=== PATIENT | female | born 1955 ===

== ENCOUNTER 2016-12-10 07:25 | Emergency (ER) | payer SELFPAY ==
[2016-12-10] MEDS ORDERED: IOPAMIDOL 300 (61%) 150 ML VIAL IV ONE (07:26)
[2016-12-10 08:24] LABS: ABSOLUTE NEUTROPHIL COUNT 2.6 K/mm3 (1.8-7.7); BASO % 0.2 % (0.2-1.0); EOS % 0.2 % (0.9-2.9); HEMATOCRIT 34.7 % (37.0-47.0); HEMOGLOBIN 11.7 gm/l (12.0-16.0); IMM NEUT% 0.2 % (0-1); LYMPH # 1.4 (1.0-4.8); LYMPH % 31.2 % (15-45); MEAN CELL VOLUME 92.8 fl (81.0-99.0); MEAN CORPUSCULAR HEMOGLOBIN 31.3 pg (27.0-31.0); MEAN CORPUSCULAR HGB CONC 33.7 g/dl (33.0-37.0); MEAN PLATELET VOLUME 10.1 fl (7.4-10.4); MONO # 0.4 (0.0-0.8); MONO % 9.5 % (4-12); NEUT % 58.7 % (43-75); PLATELET COUNT 203 K/mm3 (130-400); RED CELL DISTRIBUTION WIDTH 13.2 % (11.5-14.5)
[2016-12-10] MEDS ORDERED: MORPHINE SULFATE 4 MG/ML SYRINGE ONE (08:40)
[2016-12-10] MEDS ORDERED: LACTATED RINGERS 1,000 ML ONE (08:40)
[2016-12-10] MEDS ORDERED: ACETAMINOPHEN 325 MG TABLET ONE (08:40)
[2016-12-10 08:56] LABS: SPECIFIC GRAVITY 1.005 (1.001-1.030); URINE APPEARANCE CLEAR; URINE BILIRUBIN NEGATIVE (NEGATIVE); URINE BLOOD 1+ (NEGATIVE); URINE COLOR YELLOW; URINE GLUCOSE (UA) NEGATIVE (NEGATIVE); URINE LEUKOCYTE ESTERASE NEGATIVE (NEGATIVE); URINE NITRITE NEGATIVE (NEGATIVE); URINE PROTEIN NEGATIVE (NEGATIVE); URINE UROBILINOGEN NORMAL (0-1 mg/dl)
[2016-12-10 09:02] LABS: INR 1.05
[2016-12-10 09:08] LABS: ALB/GLOB RATIO 1.2 (>1.0); ALBUMIN 3.8 gm/dL (3.5-5.7); CALCIUM 8.8 mg/dL (8.6-10.3)
[2016-12-10 09:12] LABS: URINE BACTERIA RARE; URINE EPITHELIAL CELLS RARE /hpf; URINE WBC NEG /hpf
[2016-12-10 09:13] LABS: TROPONIN I < 0.01 ng/ml (0.0-0.06)
[2016-12-10 09:17] LABS: CKMB ISOENZYME 0.8 ng/ml (0.6-6.3)
--- NOTE | 2016-12-10 10:15 | CT ---
EXAMINATION: Contrast enhanced CT scan of the abdomen and pelvis. CLINICAL INDICATION: Left-sided abdominal pain. Nausea. COMPARISON: None TECHNIQUE: Oral contrast: None Following uneventful administration of 125 mL of Isovue 300, intravenously axial images were acquired from just above the domes of the diaphragm to the iliac crest. A CT scan of the pelvis was also obtained from the iliac crest to the initial tuberosities. Stacked axial, sagittal, and coronal images were reviewed. Findings: Abdomen CT: (Contrast-enhanced): There is right middle lobe bronchiectasis and peribronchial thickening. Remainder the lung bases are clear and are without mass or pleural effusion. The liver is unremarkable. The gallbladder is within normal limits. There is no evidence of biliary obstruction. The spleen size and attenuation are within normal limits. The pancreas is normal in size and contours. No inflammatory stranding is identified. The pancreatic duct is unremarkable. The adrenals are unremarkable. Kidneys exhibit extrarenal pelvis bilaterally. No distal ureteral dilatation is identified. No plaquing calculi are seen. After chronic plaquing of abdominal aorta is noted. There is no aneurysmal dilatation. There is no adjacent lymphadenopathy. The stomach is unremarkable. The visualized segments of small and large bowel are within normal limits. The osseous structures exhibit no displaced fracture. No lytic or blastic lesions are identified. Pelvic CT: (Contrast -enhanced): The distal ureters and bladder are unremarkable. Uterus is retroverted. There are no adnexal masses. No adenopathy is identified. The distal abdominal aorta and iliac vessels are within normal limits. The visualized segments of small and large bowel are unremarkable. The appendix is unremarkable. No displaced fractures are identified. There are no gross osteolytic or blastic lesions. The overlying soft tissues are unremarkable. IMPRESSION: 1. Right middle lobe bronchiectasis with peripheral scarring. Findings may reflect sequela of prior atypical pneumonia. 2. No acute inflammatory or obstructive process is identified within the abdomen and pelvis. 3. Bilateral extrarenal pelvis with no evidence of jimmy hydronephrosis or perinephric stranding. No ureteral calculi are identified. 4. Retroverted uterus. 5. Normal appendix. 6. Mild atherosclerotic changes of the abdominal aorta. The findings were uploaded to the electronic medical record for review at approximately 10:16 AM 12/10/2016
--- NOTE | 2016-12-10 10:17 | RAD ---
EXAMINATION:CHEST - 2 VIEWS CLINICAL INDICATION: Fever and weakness. COMPARISON: Prior exam dated 01/12/2007. FINDINGS: The cardiomediastinal silhouette is within normal limits. There is no adenopathy identified. There is no pleural effusion. Minimal coarsened opacities are noted within the right lower lung zone/middle lobe. No dense consolidation is identified. The osseous structures are unremarkable for age. IMPRESSION: Right middle lobe probable scarring/possible bronchiectasis. No consolidation or effusion is identified.
[2016-12-10] MEDS ORDERED: DOXYCYCLINE HYCLATE 100 MG TABLET ONE (10:47)
[2016-12-10] MEDS ORDERED: CEFTRIAXONE 1 GRAM DUPLEX 50 ML IV ONE (10:47)
== END 2016-12-10 11:53 | disposition home or self-care (01) ==
LOC: ED 07:25 → SUPCPDRO 07:25 → ED 11:53
DX: J18.9 Pneumonia, unspecified organism (principal)
CPT/HCPCS: 83605; 83690; 85025; 82553; 80053; 83735; 85610; 84484; 81001; 71020; 74177; 87804; 96375; 99284 ×2; 96374; 96361 ×2; 93005; J2270; A9270 ×2; J7120; Q9967; J0696

== ENCOUNTER 2016-12-24 09:19 | Day surgery (SDC) | payer SELFPAY ==
[~2016-12-24 09:19] MED LIST: FENTANYL 250 MCG/5 ML AMP IV PRN; IV START KIT ONE; LACTATED RINGERS 1,000 ML IV SCH; LACTATED RINGERS 1,000 ML ONE; LIDOCAINE Viscous 2% 15 ML UDCUP PO PRN; MIDAZOLAM HCL 5 MG/5 ML VIAL IV PRN
[2016-12-24] MEDS ORDERED: MIDAZOLAM HCL 5 MG/5 ML VIAL ONE (11:02)
[2016-12-24] MEDS ORDERED: FENTANYL 5 ML ONE (11:02)
[2016-12-24] MEDS ORDERED: LIDOCAINE Viscous 2% 15 ML UDCUP ONE (11:03)
--- NOTE | 2016-12-27 15:07 | SURGPATH ---
[facility] [address] [place] [id number] Patient Name: DON NEW MR#: [id number] : 1955 Gender: F Specimen #: [id number] Collected: 12/24/2016 Received: 12/25/2016 Reported: 12/27/2016 Submitting Phys: IKER ANN Copy To Phys: [facility] JAMESON PARKERELLE Warner Clinical History / Pre-Operative Diagnosis: Left abdominal pain with nausea; weight loss; rule out Giardia, celiac sprue, gastritis, ileitis and colitis Specimen Source / Surgical Procedure Performed: #1-duodenal biopsy; #2-antral biopsy; #3-terminal ileum biopsy; #4-cecal biopsy; #5-sigmoid biopsy at 30 cm Interpretation: 1. DUODENAL BIOPSY: - NO SIGNIFICANT PATHOLOGIC ABNORMALITIES IDENTIFIED. 2. ANTRAL BIOPSY: - CHRONIC ANTRAL GASTRITIS WITH INTESTINAL METAPLASIA. - NO HELICOBACTER ORGANISMS IDENTIFIED BY IMMUNOHISTOCHEMISTRY. 3. TERMINAL ILEUM BIOPSY: - NO SIGNIFICANT PATHOLOGIC ABNORMALITIES IDENTIFIED. 4. CECAL BIOPSY: - NO SIGNIFICANT PATHOLOGIC ABNORMALITIES IDENTIFIED. 5. SIGMOID BIOPSY AT 30 CM: - NO SIGNIFICANT PATHOLOGIC ABNORMALITIES IDENTIFIED. Electronically Signed Out Sanjuana Jimenez M.D. Gross Description: #1 The specimen is received in a formalin filled container labeled with the patient's name and "duodenal biopsy". A single lozoya biopsy is 0.5 cm. Totally embedded in cassette #1. #2 The specimen is received in a formalin filled container labeled with the patient's name and "antral biopsy". Two camacho-lozoya biopsies are each 0.3 cm. Totally embedded in cassette #2. #3 The specimen is received in a formalin filled container labeled with the patient's name and "terminal ileum biopsy". A single lozoya biopsy is 0.2 cm. Totally embedded in cassette #3. #4 The specimen is received in a formalin filled container labeled with the patient's name and "cecal biopsy". Two lozoya biopsies are 0.3 and 0.4 cm. Totally embedded in cassette #4. #5 The specimen is received in a formalin filled container labeled with the patient's name and "sigmoid biopsy at 30 cm". A single lozoya biopsy is 0.5 cm. Totally embedded in cassette #5. Clarence An Microscopic Description: 1. Sections of the duodenal biopsy show benign duodenal mucosa with no significant pathologic changes. 2. Sections of the antral biopsy show increased chronic inflammation of the lamina propria with clustering of plasma cells. In addition, there are areas of intestinal metaplasia. The mucosa is not obviously atrophic. No convincing Helicobacter organisms are seen on the routinely stained sections. Immunohistochemical staining for Helicobacter is negative. The control material stains appropriately. 3. Sections of the terminal ileum biopsy show benign small bowel mucosa with no significant pathologic changes. 4.-5. Sections of the cecal and sigmoid colon biopsies show benign colonic mucosa with no significant pathologic changes. (Analyte-specific reagents (ASR) are used in many laboratory tests necessary for standard medical care and generally do not require FDA approval. This test was developed and its performance characteristics determined by [facility]. It has not been cleared or approved by the U.S. Food and Drug Administration. [facility] is certified under the Clinical Laboratory Improvement Amendments of 1988 as qualified to perform high complexity clinical laboratory testing. All controls stain as expected.) 1: 99924 2: 91437, 28544 3: 79592 4: 33513 5: 01872 K29.50 R10.9
== END 2016-12-24 13:31 | disposition home or self-care (01) ==
LOC: SDC 09:19
PROVIDERS: ATTEND Internal Medicine Gastroenterology
PROC: 0DBH8ZX Excision of Cecum, Via Natural or Artificial Opening Endoscopic, Diagnostic (ICD-10-PCS; principal; 2016-12-24)
PROC: 0DBB8ZX Excision of Ileum, Via Natural or Artificial Opening Endoscopic, Diagnostic (ICD-10-PCS; 2016-12-24)
PROC: 0DBN8ZX Excision of Sigmoid Colon, Via Natural or Artificial Opening Endoscopic, Diagnostic (ICD-10-PCS; 2016-12-24)
PROC: 0DB98ZX Excision of Duodenum, Via Natural or Artificial Opening Endoscopic, Diagnostic (ICD-10-PCS; 2016-12-24)
PROC: 0DB68ZX Excision of Stomach, Via Natural or Artificial Opening Endoscopic, Diagnostic (ICD-10-PCS; 2016-12-24)
DX: K59.8 Other specified functional intestinal disorders (principal); K29.50 Unspecified chronic gastritis without bleeding; K29.80 Duodenitis without bleeding; R63.4 Abnormal weight loss; Z68.22 Body mass index [BMI] 22.0-22.9, adult
CPT/HCPCS: 45380; 43239; J3010; J2250; A9270; J7120

== ENCOUNTER 2017-01-09 00:04 | Observation (INO) | payer SELFPAY ==
[2017-01-09] MEDS ORDERED: IOPAMIDOL 300 (61%) 100 ML VIAL IV ONE (00:05)
[2017-01-09] MEDS ORDERED: ONDANSETRON 4 MG/2ML 2 ML VIAL ONE (00:50)
[2017-01-09] MEDS ORDERED: PANTOPRAZOLE SODIUM 40 MG VIAL IV ONE (00:50)
[2017-01-09] MEDS ORDERED: HYDROMORPHONE HCL 1 MG/ML SYRINGE ONE (00:50)
[2017-01-09] MEDS ORDERED: LACTATED RINGERS 1,000 ML ONE ×2 (00:50→01:31)
[2017-01-09 01:02] LABS: ABSOLUTE NEUTROPHIL COUNT 8.8 K/mm3 (1.8-7.7); BASO % 0.2 % (0.2-1.0); HEMATOCRIT 36.8 % (37.0-47.0); HEMOGLOBIN 11.9 gm/l (12.0-16.0); IMM NEUT% 0.4 % (0-1); LYMPH # 1.1 (1.0-4.8); LYMPH % 10.6 % (15-45); MEAN CELL VOLUME 93.6 fl (81.0-99.0); MEAN CORPUSCULAR HEMOGLOBIN 30.3 pg (27.0-31.0); MEAN CORPUSCULAR HGB CONC 32.3 g/dl (33.0-37.0); MEAN PLATELET VOLUME 9.2 fl (7.4-10.4); MONO # 0.2 (0.0-0.8); MONO % 1.6 % (4-12); NEUT % 87.2 % (43-75); PLATELET COUNT 303 K/mm3 (130-400); RED CELL DISTRIBUTION WIDTH 13.2 % (11.5-14.5)
[2017-01-09 01:22] LABS: ALB/GLOB RATIO 1.3 (>1.0); ALBUMIN 4.3 gm/dL (3.5-5.7); CALCIUM 10.1 mg/dL (8.6-10.3)
[2017-01-09 02:04] LABS: SPECIFIC GRAVITY 1.015 (1.001-1.030); URINE BILIRUBIN NEGATIVE (NEGATIVE); URINE BLOOD NEGATIVE (NEGATIVE); URINE GLUCOSE (UA) NEGATIVE (NEGATIVE); URINE LEUKOCYTE ESTERASE NEGATIVE (NEGATIVE); URINE NITRITE NEGATIVE (NEGATIVE); URINE PROTEIN NEGATIVE (NEGATIVE); URINE UROBILINOGEN NORMAL (0-1 mg/dl)
[2017-01-09 02:05] LABS: URINE APPEARANCE CLEAR; URINE COLOR YELLOW
[2017-01-09 03:18] VITALS: BMI 19.3
[2017-01-09] MEDS ORDERED: MENTHOL/CETYLPYRD 1 EACH LOZENGE PO PRN (04:45)
[2017-01-09] MEDS ORDERED: BLISTEX LIPSTICK 1 EACH TP PRN (04:45)
[2017-01-09] MEDS ORDERED: SODIUM CHLORIDE 0.9% 100 ML IV PRN (04:45)
[2017-01-09] MEDS ORDERED: ONDANSETRON 4 MG/2ML 2 ML VIAL IV PRN (04:48)
[2017-01-09] MEDS ORDERED: HYDROMORPHONE HCL 1 MG/ML SYRINGE IV PRN (05:12)
[2017-01-09] MEDS ORDERED: PUMP TUBING ONE (05:59)
[2017-01-09] MEDS: D5 1/2NS with 20 mEq KCL 1,000 ML IV SCH ×3 (06:01→23:40)
[2017-01-09 07:15] LABS: ABSOLUTE NEUTROPHIL COUNT 6.4 K/mm3 (1.8-7.7); BASO % 0.2 % (0.2-1.0); HEMATOCRIT 31.8 % (37.0-47.0); HEMOGLOBIN 10.4 gm/l (12.0-16.0); IMM NEUT% 0.3 % (0-1); LYMPH # 1.8 (1.0-4.8); LYMPH % 21.1 % (15-45); MEAN CELL VOLUME 93.3 fl (81.0-99.0); MEAN CORPUSCULAR HEMOGLOBIN 30.5 pg (27.0-31.0); MEAN CORPUSCULAR HGB CONC 32.7 g/dl (33.0-37.0); MONO # 0.4 (0.0-0.8); MONO % 4.1 % (4-12); NEUT % 74.3 % (43-75); PLATELET COUNT 255 K/mm3 (130-400); RED CELL DISTRIBUTION WIDTH 13.5 % (11.5-14.5)
--- NOTE | 2017-01-09 07:42 | CT ---
Exam Type: ABD/PELVIS W/ CON Date and Time: 01/09/2017 12:33 AM Clinical information: Abdomen pain with vomiting. Comparison: 12/10/2016. Procedure: Imaging device: RxVantage Aquilion [address] scanner 1 mm axial images were obtained through the abdomen and pelvis. Stacked reconstructed 3, 4 and 5 mm images were photographed in the axial coronal and sagittal planes. No oral contrast was utilized for this examination. 100 ml of Isovue-300 was injected intravenously. Exam: with intravenous contrast. FINDINGS: Lung bases: Scarring and mild bronchiectasis is suggested within the inferior aspects of the right middle lobe and lingula. Liver: the liver is homogeneous with no discrete abnormality visualized. No definite findings of biliary dilatation are observed. Spleen: The spleen is homogeneous and does not appear to be enlarged. Gallbladder: Normal without enlargement or evidence of adjacent inflammatory changes. Pancreas: Normal without enlargement or evidence of adjacent inflammatory changes. Adrenal glands: Normal without enlargement or evidence of adjacent inflammatory changes. Abdominal aorta: Atherosclerotic vascular calcification is seen. There is no focal aneurysm identified. Kidneys: The kidneys appear to be symmetric in size with no perinephric inflammatory changes are identified. No current findings of hydronephrosis are seen. Bowel structures: The colon is completely decompressed with a mild to moderate quantity of stool seen throughout the colon. There are fluid-filled mildly prominent loops of small bowel seen throughout the abdomen which are more conspicuous than the appearance on prior examination. There may be a relative transition within the central pelvis. No free air is visualized. A small amount of pelvic free fluid is observed. Appendix: The appendix is well-visualized and appears to be of normal caliber. No periappendiceal inflammatory changes or CT findings of appendicitis are currently observed. Bladder: The bladder is of normal contour. No wall thickening or significant distention is observed. Hernia: No abdominal wall or inguinal hernia is visualized on this examination. Adenopathy: No significant enlarged adenopathy is visualized. Osseous structures: No discrete osseous abnormalities are identified. Pelvic structures: No discrete pelvic abnormalities are visualized in this examination. IMPRESSION: 1. Fluid-filled mildly dilated small bowel loops throughout the abdomen with a relative transition within the central/anterior pelvis. Findings are more conspicuous than their appearance on prior examination and may reflect early or partial small bowel obstruction versus a diffuse ileus, though the colon appears to be completely decompressed. 2. A small amount of pelvic free fluid. 3. A normal appearance of the appendix without CT evidence of appendicitis. The findings were called to the emergency room at 0206 hours, 01/09/2017, by [facility].
[2017-01-09] MEDS ORDERED: ACETAMINOPHEN 325 MG TABLET PO PRN (08:28)
--- NOTE | 2017-01-09 08:37 | PCMCONS ---
General Surgery Consult: CC: Abdominal pain HPI: 61yo F with abdominal pain and poor PO intake. These symptoms started 4 months ago and she has had multiple evaluations in the interim. She states her main complaint is LEFT sided abdominal pain. Yesterday, she also had two episodes of NV. Her last BM was yesterday and she states she felt better afterwards. She is currently passing flatus. Her outpatient workup has included now two abdominal CT scans, a RUQ/abdominal US, and a colonoscopy/EGD which only elucidated gastritis. She was started on famotidine and carafate with no real relief. Her daughter states that she has lost weight recently, but is unsure as to how much. According to outpatient records, her weight on the following dates was: 09/29/14: 147 lbs 11/14/15: 109 lbs 10/26/16: 109 lbs 12/09/16: 106 lbs 12/17/16: 106lbs The patient endorses subjective chillsmild intermittent epigastric/chest pain, constipation, and RIGHT shoulder pain. She denies any recent F/SOB, change in bladder fx, easy bleeding/bruising, or other associated symptoms. REVIEW OF SYSTEMS CONSTITUTIONAL: As per HPI. EARS, NOSE, MOUTH, THROAT: No sneezing or runny nose CARDIOVASCULAR: As per HPI. RESPIRATORY: As per HPI. GASTROINTESTINAL: As per HPI. GENITOURINARY: As per HPI. NEUROLOGICAL: No history of seizures HEMATOLOGIC: As per HPI. MUSCULOSKELETAL: No change in strength. LYMPHATICS: No history of splenectomy. PSYCHIATRIC: No change in personality or affect PMH: None PSH: None Meds: Carafate, famotidine All: NKDA SH: Denies FH: Father with leukemia Vitals (last 24 hours): Vital Signs - 24 hr 01/09/17 01/09/17 01/09/17 03:31 07:15 08:00 Temperature 97.9 F 98.5 F Pulse Rate 102 89 Respiratory 18 16 Rate Blood Pressure 155/79 146/75 O2 Saturation 97 97 by Pulse Oximetry Physical Exam: General/Constitutional: Vitals documented above, comfortable in NAD Psych: A&O x 3, normal judgment and insight. Recent and remote memory intact. Mood and affect normal. Eyes: Pupils equal, no scleral icterus Ears, Nose, Mouth, Throat: gross hearing intact Neck: Supple Heart: RRR, no LE edema Lungs: Equal rise and fall of chest wall, non-labored breathing, no audible wheezes Neuro: Gross sensation intact Abdomen: Soft, ND, mild LEFT abdominal TTP, no guarding Labs (Last 24 hours): Laboratory Results - last 24 hr 01/09/17 01/09/17 01/09/17 00:41 02:00 07:08 WBC 10.1 8.6 RBC 3.93 L 3.41 L Hgb 11.9 L 10.4 L Hct 36.8 L 31.8 L MCV 93.6 93.3 MCH 30.3 30.5 MCHC 32.3 L 32.7 L RDW 13.2 13.5 Plt Count 303 255 Neut % (Auto) 87.2 H 74.3 Lymph % (Auto) 10.6 L 21.1 Hayes % (Auto) 1.6 L 4.1 Baso % (Auto) 0.2 0.2 Absolute Neuts (auto) 8.8 H 6.4 Eosinophils % 0.0 L 0.0 L VBG Lactate 2.6 H 2.5 H Sodium 138 140 Potassium 3.8 3.6 Chloride 96 L 101 Carbon Dioxide 29 30 Anion Gap 17 H 13 BUN 10 6 L Creatinine 0.7 0.6 Estimated GFR 86 102 H BUN/Creatinine Ratio 14 10 Glucose 180 H 137 H Calcium 10.1 9.0 Total Bilirubin 0.3 AST 34 ALT 49 Alkaline Phosphatase 98 Total Protein 7.6 Albumin 4.3 Globulin 3.3 Albumin/Globulin Ratio 1.3 Lipase 8 L Urine Color Yellow Urine Appearance Clear Urine pH 8.0 Ur Specific [place] 1.015 Urine Protein Negative Urine Glucose (UA) Negative Urine Ketones Negative Urine Blood Negative Urine Nitrite Negative Urine Bilirubin Negative Urine Urobilinogen Normal Ur Leukocyte Esterase Negative % Immature Granulocyt 0.4 0.3 Radiology: CT A/P (01/09/17): FINDINGS: Lung bases: Scarring and mild bronchiectasis is suggested within the inferior aspects of the right middle lobe and lingula. Liver: the liver is homogeneous with no discrete abnormality visualized. No definite findings of biliary dilatation are observed. Spleen: The spleen is homogeneous and does not appear to be enlarged. Gallbladder: Normal without enlargement or evidence of adjacent inflammatory changes. Pancreas: Normal without enlargement or evidence of adjacent inflammatory changes. Adrenal glands: Normal without enlargement or evidence of adjacent inflammatory changes. Abdominal aorta: Atherosclerotic vascular calcification is seen. There is no focal aneurysm identified. Kidneys: The kidneys appear to be symmetric in size with no perinephric inflammatory changes are identified. No current findings of hydronephrosis are seen. Bowel structures: The colon is completely decompressed with a mild to moderate quantity of stool seen throughout the colon. There are fluid-filled mildly prominent loops of small bowel seen throughout the abdomen which are more conspicuous than the appearance on prior examination. There may be a relative transition within the central pelvis. No free air is visualized. A small amount of pelvic free fluid is observed. Appendix: The appendix is well-visualized and appears to be of normal caliber. No periappendiceal inflammatory changes or CT findings of appendicitis are currently observed. Bladder: The bladder is of normal contour. No wall thickening or significant distention is observed. Hernia: No abdominal wall or inguinal hernia is visualized on this examination. Adenopathy: No significant enlarged adenopathy is visualized. Osseous structures: No discrete osseous abnormalities are identified. Pelvic structures: No discrete pelvic abnormalities are visualized in this examination. IMPRESSION: 1. Fluid-filled mildly dilated small bowel loops throughout the abdomen with a relative transition within the central/anterior pelvis. Findings are more conspicuous than their appearance on prior examination and may reflect early or partial small bowel obstruction versus a diffuse ileus, though the colon appears to be completely decompressed. 2. A small amount of pelvic free fluid. 3. A normal appearance of the appendix without CT evidence of appendicitis. A/P: 61yo F with chronic LEFT abdominal pain, weight loss, and nausea/vomiting. Mild persistent tachycardia and lactic acidosis despite fluid resuscitation. Persistent mild anemia. CT scan shows possible obstructive pattern vs. ileus and she has no prior history of prior abdominal surgeries. Prior CT/US/EGD/ Colonoscopy largely unremarkable. Given her benign exam and that she is passing flatus, favor ileus over obstruction. Given the transition point in the pelvis and her LEFT sided abdominal pain, would further evaluate OIL DELIVERER organs with pelvic US. Will continue to follow with you. Feliz Self MD General Surgery
[2017-01-09] MEDS: FAMOTIDINE 20 MG TABLET PO SCH ×2 (09:16→20:32)
[2017-01-09] MEDS: PANTOPRAZOLE 40 MG TABLET DR PO SCH (09:16)
--- NOTE | 2017-01-09 09:21 | HP ---
Mile Null [id number] : 1955 DATE OF ADMISSION: 01/09/2017 INDENTIFICATION: Ms. Null is a 61-year-old followed at [facility]. CHIEF COMPLAINT: Abdominal pain. HISTORY OF PRESENT ILLNESS: History if obtained with the patient's daughter acting as branch store manager. The patient did [employer]. She reports burning left sided and epigastric abdominal pain since August. She has been seeking medical care at various clinics and hospitals including [facility] and [facility]. She has had a variety of workup, but came to [place] on December 10. She was seen in the emergency department and diagnosed with pneumonia. She was then referred, by Urgent Care apparently, to Dr. Esquivel and was seen on December 24 for EGD and colonoscopy. EGD showed some gastritis. Colonoscopy was normal, but impression of functional motility disorder was noted. The patient was treated with famotidine and sucralfate, but her symptoms have continued and worsened and she presented to [facility] Emergency Room last night due to abdominal pain. She had a CT scan which appeared to show partial small bowel obstruction and she was referred to the hospitalist service for observation. She did have a normal bowel movement at approximately 1400 yesterday and did note decrease in her abdominal pain with her bowel movement. She does note currently passing gas this morning. REVIEW OF SYSTEMS: HEENT: Reports headache, right posterior. No specific problems with ears, eyes, nose, or throat. RESPIRATORY: Slight cough with some bitter sputum. No dyspnea. CARDIAC: No chest pain or palpitations. GASTROINTESTINAL: She did have vomiting twice yesterday. Does not feel nauseated now. Normal bowel movement yesterday, passing gas now. GENITOURINARY: No dysuria or urgency. MUSCULOSKELETAL: Complains of right posterior shoulder pain which has been chronic. CONSTITUTIONAL: She has felt chilled. Her daughter thinks that she has lost weight from about 112 pounds last August when she started having pain to about 103 pounds now. PAST MEDICAL HISTORY: None other than the recent diagnosis of gastritis. PAST SURGICAL HISTORY: None. ALLERGIES: None known. MEDICATIONS: 1. Sucralfate 2 gm by mouth twice daily. 2. Famotidine 40 mg by mouth twice daily. HABITS: No tobacco, alcohol, or drugs. SOCIAL HISTORY: She is a homemaker. Lives in [place] with extended family. FAMILY HISTORY: Her father had leukemia. PHYSICAL EXAMINATION: GENERAL: This is an anxious, but well-appearing 61-year-old. pleasant elderly .. VITAL SIGNS: Temperature 98.5 degrees Fahrenheit, pulse 89, blood pressure 146/75, respiratory rate 16, oxygen saturation 97% on room air. HEENT: Pupils equal, round, and reactive. Extraocular muscles intact. Oropharynx is moist. CHEST: Clear to auscultation. HEART: Regular with a 2/6 systolic murmur. ABDOMEN: Soft with mild tenderness on the left flank. No guarding or rebound. Normal bowel sounds. No organomegaly. EXTREMITIES: Normal dorsalis pedis pulses. No cyanosis, clubbing, or edema. NEUROLOGIC: Patient is alert and oriented. She has no focal deficits. LABORATORIES: White blood cell count 10.1, hemoglobin and hematocrit 11.9 and 36.8, platelets 303. Lactate is 2.6, on repeat exam 6 hours later it is still 2.5. Chemistry, sodium 138, potassium 3.8, chloride 96, CO2 29, BUN 17, creatinine 0.7, glucose 180. Liver enzymes are normal. Lipase is 8. Urinalysis is normal. DIAGNOSTICS: CT scan of the abdomen and pelvis shows fluid filled small bowel loops throughout the abdomen with relative transition in the central anterior pelvis, there is pelvic free fluid noted, normal appendix. ASSESSEMENT: Ms. Null is a 61-year-old with several months history of abdominal pain who now presents with what appears to be a partial small bowel obstruction versus ileus with persistent lactic acidosis. She has gastritis and anemia. PLAN: 1. Refer to observation on med/surg. 2. Intravenous fluid hydration. 3. Surgical consultation. 4. We will check pelvic ultrasound for source of obstruction. 5. Since she is passing gas and abdominal exam is benign we will start clear liquids. 6. Full code status. 7. Anticipate hospitalization of less than 48 hours therefore, venous thromboembolism prophylaxis is not indicated. JOB: [id number]
--- NOTE | 2017-01-09 11:36 | US ---
Exam: Complete pelvic ultrasound COMPARISON: CT 01/09/2017 and 12/10/2016 INDICATION: Left lower quadrant pain and anemia. FINDINGS: Transabdominal and transvaginal pelvic ultrasound was obtained. Uterus measures 6.2 x 2.0 x 4.2 cm and is overall homogeneous in echotexture. Endometrium within normal limits measuring up to 4 mm in bilayer thickness on the transvaginal exam. Right ovary measures 1.9 x 2.5 x 0.9 cm and left ovary measures 2.0 x 0.8 x 1.5 cm. There is a 10 mm cyst within the left ovary. Ovaries otherwise unremarkable. There is a small amount of free fluid in the pelvis, simple in appearance. IMPRESSION: No findings identified to explain patient's symptoms. Endometrium and ovaries are within normal limits.
[2017-01-09] MEDS: KETOROLAC TROMETHAMINE 15 MG/ML VIAL IV PRN (20:28)
[2017-01-10] MEDS: HYDROMORPHONE HCL 0.5 MG/0.5 ML SYRINGE IV PRN ×2 (00:58→02:09)
[2017-01-10 05:59] LABS: ABSOLUTE NEUTROPHIL COUNT 2.2 K/mm3 (1.8-7.7); BASO % 0.7 % (0.2-1.0); EOS % 0.5 % (0.9-2.9); HEMATOCRIT 31.2 % (37.0-47.0); HEMOGLOBIN 10.1 gm/l (12.0-16.0); IMM NEUT% 0.2 % (0-1); LYMPH # 1.5 (1.0-4.8); LYMPH % 36.5 % (15-45); MEAN CELL VOLUME 94.5 fl (81.0-99.0); MEAN CORPUSCULAR HEMOGLOBIN 30.6 pg (27.0-31.0); MEAN CORPUSCULAR HGB CONC 32.4 g/dl (33.0-37.0); MEAN PLATELET VOLUME 9.2 fl (7.4-10.4); MONO # 0.3 (0.0-0.8); MONO % 8.2 % (4-12); NEUT % 53.9 % (43-75); PLATELET COUNT 226 K/mm3 (130-400); RED CELL DISTRIBUTION WIDTH 13.7 % (11.5-14.5)
[2017-01-10 06:19] LABS: ALB/GLOB RATIO 1.2 (>1.0); ALBUMIN 3.4 gm/dL (3.5-5.7); CALCIUM 8.7 mg/dL (8.6-10.3)
[2017-01-10] MEDS: D5 1/2NS with 20 mEq KCL 1,000 ML IV SCH ×2 (07:46→16:06)
[2017-01-10] MEDS: KETOROLAC TROMETHAMINE 15 MG/ML VIAL IV PRN ×2 (07:54→13:58)
--- NOTE | 2017-01-10 08:17 | RAD ---
ABDOMEN 2 VIEWS W PA CHEST HISTORY: Upper back pain and abdominal pain. COMPARISONS: CT abdomen and pelvis 01/09/2017 FINDINGS: PA of the chest with upright and supine views of the abdomen are obtained. Lungs are clear without effusion or pneumothorax. Cardiomediastinal silhouette is unremarkable. No plain film evidence of intraperitoneal free air. Bowel gas pattern is nonspecific and nonobstructive. The air-fluid levels seen on recent CT are not identified on this examination. Mild amount stool is scattered throughout the large bowel. Osseous structures are intact. IMPRESSION: Negative examination.
[2017-01-10] MEDS: PANTOPRAZOLE 40 MG TABLET DR PO SCH (08:42)
[2017-01-10] MEDS: FAMOTIDINE 20 MG TABLET PO SCH ×2 (08:42→20:36)
--- NOTE | 2017-01-10 08:46 | PDOC43 ---
- Subjective Subjective: Reports Flatus, Reports Pain Tolerable, Denies Bowel Movement, Denies Nausea - Objective Vital Signs Temperature 97.8 F 01/10/17 07:51 Pulse Rate 68 01/10/17 07:51 Respiratory Rate 18 01/10/17 07:51 Blood Pressure 150/69 01/10/17 07:51 O2 Saturation by Pulse Oximetry 99 01/10/17 07:51 Oxygen Delivery Method Room Air Oxygen Flow Rate 0 Laboratory 01/10/17 05:30 01/10/17 05:30 01/10/17 05:30 RBC 3.30 L MCHC 32.4 L BUN 3 L Estimated GFR 126 H Total Protein 6.3 L Albumin 3.4 L Active Medication Orders Category Date Time Status Acetaminophen [Tylenol] Med 01/09/17 08:28 Active 650 mg PO Q6H PRN D5 1/2NS with 20 mEq KCL [D51/2NS with 20 mEq KCL] 1, Med 01/09/17 04:45 Active 000 ml IV 125 mls/hr Famotidine [Pepcid] Med 01/09/17 09:00 Active 20 mg PO BID Hydromorphone HCl [Dilaudid] Med 01/09/17 04:48 Active 0.5 - 1 mg IV Q2H PRN Hydromorphone HCl [Dilaudid] Med 01/09/17 05:12 Active 0.5 - 1 mg IV Q2H PRN Ketorolac Tromethamine [Toradol] Med 01/09/17 20:00 Active 15 mg IV Q6H PRN Lip [place] [Blistex] Med 01/09/17 04:45 Active 1 each TP PRN PRN Menthol/Cetylpyridinium [Cepacol] Med 01/09/17 04:45 Active 1 each PO PRN PRN Ondansetron 4 mg/2ml Vial [Zofran] Med 01/09/17 04:48 Active 4 mg IV Q3H PRN Pantoprazole Sodium [Protonix] Med 01/09/17 09:00 Active 40 mg PO DAILY Sodium Chloride 0.9% 100 ml Med 01/09/17 04:45 Active IV PRN Sodium Chloride 0.9% Flush [Normal Saline 10ml Flush] Med 01/09/17 04:45 Active 10 - 50 ml IV PRN PRN Sodium Chloride 0.9% Flush [Normal Saline 10ml Flush] Med 01/09/17 17:00 Active 10 ml IV Q8HR Intake and Output 01/09/17 01/10/17 01/11/17 06:59 06:59 06:59 Intake Total 2257 Output Total 600 3950 Balance -600 -1693 General: Alert, Oriented x3 Abdomen: Soft, Tenderness (left upper quadrant), Non-Distended Psych/Mental Status: Normal Affect - Assessment/ Plan (1) SBO (small bowel obstruction) Status: AcuteAssessment/ Plan: x-rays this am are normal. Still having pain. Will order gastrograffin SBFT. May have therapeutic effect. I wonder if this is just constipation. Discussed with Dr. Gama. (2) Lactic acidosis Status: AcuteAssessment/ Plan: Resolved.
--- NOTE | 2017-01-10 13:17 | RAD ---
SMALL BOWEL FOLLOW THROUGH HISTORY: Ileus versus obstruction. COMPARISONS: CT abdomen and pelvis 01/09/2017. Acute abdominal series earlier on the same day. FINDINGS: Multiple radiographic images are obtained during small bowel follow-through after uneventful ingestion of dilute Gastrografin solution by the patient. By 90 minutes time Gastrografin has reached the large bowel. Small bowel appears normal in its mucosal pattern. Osseous structures are intact. IMPRESSION: Contrast reaches the large bowel by 90 minutes time. No evidence of complete obstruction. Partial obstruction is possible. Differential considerations would include ileus. Correlation with patient's clinical status would be recommended.
[2017-01-10] MEDS ORDERED: MAGNESIUM CITRATE 300 ML BOT PO ONE (16:43)
--- NOTE | 2017-01-10 17:16 | PDOC43 ---
- Subjective Chief Complaint: abdominal pain Passing small hard pellets of stool. Still c/o abd pain on left side. - Objective Vital Signs Temperature 97.7 F 01/10/17 13:38 Pulse Rate 75 01/10/17 13:38 Respiratory Rate 16 01/10/17 13:38 Blood Pressure 151/81 01/10/17 13:38 O2 Saturation by Pulse Oximetry 100 01/10/17 13:38 Oxygen Delivery Method Room Air Oxygen Flow Rate 0 Intake and Output 01/09/17 01/10/17 01/11/17 06:59 06:59 06:59 Intake Total 2257 360 Output Total 600 3950 Balance -600 -1693 360 General: Alert, Oriented x3, Cooperative, No Acute Distress HEENT: Mucous membr. moist/pink Lungs: Clear to Auscultation Bilaterally Cardiovascular: Regular Rate and Rhythm Abdomen: Soft, Tenderness (on left side), Hyperactive Bowel Sounds, No Masses Extremities: Normal Pulses, No Edema Skin: Normal Color Neurological: Normal Speech Psych/Mental Status: Anxious Laboratory 01/10/17 05:30 01/10/17 05:30 01/10/17 05:30 RBC 3.30 L MCHC 32.4 L BUN 3 L Estimated GFR 126 H Total Protein 6.3 L Albumin 3.4 L Current Medications: Current meds reviewed in EMR. - Problems: Assessment/Plan (1) Lactic acidosis Status: AcuteAssessment/Plan: Due to dehydration, resolved. (2) SBO (small bowel obstruction) Status: AcuteAssessment/Plan: Resolved per x-ray and SB f/t today. (3) Anemia Status: ChronicAssessment/Plan: chronic, slightly worse due to hydration. Defer to outpatient w/u (4) GERD (gastroesophageal reflux disease) Qualifiers: Esophagitis presence: esophagitis presence not specified Qualifier Code : (K21.9) Gastro-esophageal reflux disease without esophagitis Status: ChronicAssessment/Plan: continue PPI (5) IBS (irritable bowel syndrome) Qualifiers: Irritable bowel syndrome type: with constipation Qualifier Code: (K58.1 ) Irritable bowel syndrome with constipation Status: ChronicAssessment/Plan : Suspect symptoms are due to IBS with constipation, trial of dycyclomine and laxatives. VTE Prophylaxis: not indicated Disposition: home tonight or tomorrow.
[2017-01-10] MEDS: DICYCLOMINE HCL 10 MG CAPSULE PO SCH (20:36)
[2017-01-10] MEDS: SUCRALFATE 1 G TABLET PO SCH (20:37)
[2017-01-11 06:26] LABS: HEMATOCRIT 32.5 % (37.0-47.0); HEMOGLOBIN 10.3 gm/l (12.0-16.0)
[2017-01-11 06:47] LABS: CALCIUM 9.2 mg/dL (8.6-10.3)
[2017-01-11] MEDS: DICYCLOMINE HCL 10 MG CAPSULE PO SCH ×2 (07:11→10:35)
[2017-01-11 07:38] VITALS: BP 146/80
[2017-01-11] MEDS: SUCRALFATE 1 G TABLET PO SCH (08:46)
[2017-01-11] MEDS: PANTOPRAZOLE 40 MG TABLET DR PO SCH (08:47)
[2017-01-11] MEDS: FAMOTIDINE 20 MG TABLET PO SCH (08:47)
[2017-01-11] MEDS ORDERED: POLYETHYLENE GLYCOL 3350 17 G POWD.SUSP PO SCH (09:00)
--- NOTE | 2017-01-11 10:24 | PDOC5 ---
ADMIT DATE: 01/09/17 DISCHARGE DATE: 01/11/17 ADMISSION DIAGNOSES: partial Small bowel obstruction PROCEDURES PERFORMED THIS HOSPITALIZATION: Abd/pelvis CT--partial small bowel obstruction, Pelvic ultrasound--normal findings, Small bowel f/t--contrast in the colon by 90 min. CONSULTATIONS: Dr. Self, general surgery HOSPITAL COURSE: This is a 61 year old who presented with a six month history of abdominal pain. She had previous upper and lower endoscopies. She had partial small bowel obstruction which resolved with bowel rest and hydration. She had constipation which resolved with laxatives. She was started an dicyclomine for IBS and on 01/11 reports improvement in her pain. - Exam Vital Signs Temperature 97.9 F 01/11/17 07:37 Pulse Rate 63 01/11/17 07:37 Respiratory Rate 14 01/11/17 07:37 Blood Pressure 146/80 01/11/17 07:37 O2 Saturation by Pulse Oximetry 98 01/11/17 07:37 Oxygen Delivery Method Room Air Oxygen Flow Rate 0 General: Alert, Oriented x3, Cooperative, No Acute Distress HEENT: Mucous membr. moist/pink Lungs: Clear to Auscultation Bilaterally Cardiovascular: Regular Rate and Rhythm Abdomen: Soft, Tenderness (mild on left), Normal Bowel Sounds, No Rebounding, No Involuntary Guarding, No Masses Extremities: Normal Pulses, No Edema Skin: Normal Color Neurological: Normal Speech Psych/Mental Status: Normal Mood - Results Laboratory 01/11/17 05:30 01/11/17 05:30 01/11/17 05:30 BUN 5 L Estimated GFR 102 H - Problems:Assessment/Plan (1) Lactic acidosis Status: AcuteAssessment/Plan: Due to dehydration, resolved. (2) SBO (small bowel obstruction) Status: AcuteAssessment/Plan: Resolved per x-ray and SB f/t. (3) Anemia Status: ChronicAssessment/Plan: chronic, slightly worse due to hydration. Defer to outpatient w/u (4) GERD (gastroesophageal reflux disease) Qualifiers: Esophagitis presence: esophagitis presence not specified Qualifier Code : (K21.9) Gastro-esophageal reflux disease without esophagitis Status: ChronicAssessment/Plan: continue H2 woo and carafate (5) IBS (irritable bowel syndrome) Qualifiers: Irritable bowel syndrome type: with constipation Qualifier Code: (K58.1 ) Irritable bowel syndrome with constipation Status: ChronicAssessment/Plan : Suspect symptoms are due to IBS with constipation, seems to be better with dycyclomine and Mirilax. - Disposition: Disposition: home today. - Discharge Plan Forms: Discharge Instructions Prescriptions: Dicyclomine HCl [BENTYL 10 MG CAPSULE (SHF)] 10 mg PO ACBEDTIME #120 capsule Follow-Up: Karina Kennedy ARNP [Referring] - 01/14/17 9:40 am Condition: Good Disposition: Home
== END 2017-01-11 10:40 | disposition home or self-care (01) ==
LOC: ED 00:04 → MS 02:33
PROVIDERS: ADMIT Family Medicine; ATTEND Family Medicine
DX: K56.60 Unspecified intestinal obstruction (principal); E87.2 Acidosis; D64.9 Anemia, unspecified; K21.9 Gastro-esophageal reflux disease without esophagitis; K58.1 Irritable bowel syndrome with constipation
CPT/HCPCS: 83605 ×3; 83690; 86141; 85025 ×3; 80048 ×2; 80053 ×2; 85014; 85018; 85651; 81003; 36415 ×3; 74022; 74250; 74177; 76856; 76830; 96375; 99285 ×2; 96374; 96361; A9270 ×15; J1170 ×3; C9113; J1885 ×3; J2405; J7120 ×2; Q9967

== ENCOUNTER 2017-03-22 05:32 | Emergency (ER) | payer SELFPAY | END 2017-03-22 06:53 | disposition home or self-care (01) | LOC: ED 05:32 | DX: M54.9 Dorsalgia, unspecified (principal); G89.29 Other chronic pain; R05 Cough; R51 Headache ==